=== PATIENT | female | born 1960 | race Caucasian/White ===

== ENCOUNTER 2016-11-05 15:49 | Emergency (ER) | payer BC, MEDICARE ==
[2016-11-05] MEDS ORDERED: DUONEB INH ONE ×3 (17:42→19:08)
== END 2016-11-05 19:47 | disposition home or self-care (01) ==
LOC: ER 15:49
DX: J44.1 Chronic obstructive pulmonary disease with (acute) exacerbation (principal); F17.200 Nicotine dependence, unspecified, uncomplicated
CPT/HCPCS: 36415; 36600; 71020; 80053; 82553; 82803; 83880; 84484; 85025; 85379; 93005; 94640